=== PATIENT | male | born 1945 | race Hispanic/Latino ===

== ENCOUNTER 2017-12-12 09:37 | Emergency (ER) | payer OTHER ==
[2017-12-12] MEDS ORDERED: OXYMETAZOLINE HCL SPRAY 15 ML BOTTLE ONE (09:56)
[2017-12-12] MEDS ORDERED: SILVER NITRATE APPLICATOR 1 SWAB TP ONE ×2 (10:12→11:12)
== END 2017-12-12 12:12 | disposition home or self-care (01) ==
LOC: EDH 09:37
DX: R04.0 Epistaxis (principal); J45.909 Unspecified asthma, uncomplicated; E11.9 Type 2 diabetes mellitus without complications; E78.5 Hyperlipidemia, unspecified; I10 Essential (primary) hypertension; Z87.891 Personal history of nicotine dependence
CPT/HCPCS: 30901

== ENCOUNTER → 2019-01-16 | Outpatient (CLI) | payer OTHER | END | disposition home or self-care (01) | LOC: RAH 11:11 | PROVIDERS: ATTEND Family Medicine | DX: Z13.6 Encounter for screening for cardiovascular disorders (principal); R07.9 Chest pain, unspecified; I25.10 Atherosclerotic heart disease of native coronary artery without angina pectoris; I25.9 Chronic ischemic heart disease, unspecified | CPT/HCPCS: 75571 ==

== ENCOUNTER → 2019-04-13 | Outpatient (CLI) | payer OTHER | END | disposition home or self-care (01) | LOC: RAH 09:31 | PROVIDERS: ATTEND Internal Medicine Cardiovascular Disease | DX: I25.10 Atherosclerotic heart disease of native coronary artery without angina pectoris (principal) | CPT/HCPCS: 93306; 93356 ==

== ENCOUNTER 2019-05-04 05:38 | Observation (INO) | payer OTHER ==
[2019-05-02 09:43] LABS: BASOPHILS % (AUTO) 0.6 % (0.0-5.0); EOSINOPHILS % (AUTO) 2.3 % (0.0-8.0); HEMATOCRIT 41.6 % (42-54); MEAN CORPUSCULAR HEMOGLOBIN 31.2 pg (27.0-33.0); MEAN CORPUSCULAR HGB CONC 33.9 g/dL (32.0-36.0); MONOCYTES % (AUTO) 5.8 % (3.0-13.0); NEUTROPHILS % (AUTO) 70.9 % (40.0-77.0); PLATELET COUNT (AUTO) 255 K/uL (130-400); RED BLOOD CELL COUNT(AUTO) 4.52 MIL/uL (4.50-6.20); RED CELL DISTRIBUTION WIDTH 12.4 % (11.0-15.5); WHITE BLOOD COUNT (AUTO) 10.8 K/uL (4.8-10.8)
[2019-05-02 09:54] LABS: CREATININE 0.9 mg/dL (0.5-1.5); POTASSIUM 4.1 mmol/L (3.5-5.1)
[2019-05-02 09:58] LABS: APPEARANCE,URINE Clear (CLEAR); BILIRUBIN,URINE Negative (NEGATIVE); COLOR,URINE Yellow (YELLOW); GLUCOSE, URINE (UA) >=1000 mg/dL (NEGATIVE); KETONES,URINE Negative (NEGATIVE); LEUKOCYTE ESTERASE ,URINE Negative (NEGATIVE); NITRATE,URINE Negative (NEGATIVE); OCCULT BLOOD,URINE Negative (NEGATIVE); PH,URINE 5.5 (5.0-8.0); PROTEIN,URINE Negative (NEGATIVE)
[2019-05-02 10:06] LABS: INR 0.99 (0.85-1.15); PARTIAL THROMBOPLASTIN TIME 27.3 SEC (26.3-35.5); PROTHROMBIN TIME 10.4 SEC (9.6-11.6)
[2019-05-02 10:17] LABS: BACTERIA,URINE Rare /HPF (None Seen); RBC,URINE 0-1 /HPF (0-1); SQUAMOUS EPITHELIAL CELL,UR Rare /HPF (0-2); WBC,URINE 0-1 /HPF (0-1)
[2019-05-02 10:42] VITALS: BP 153/77
--- NOTE | 2019-05-03 14:43 | NUR ---
CHEST X RAY CHEST X RAY RESULT REPORTED TO BISI ARRIETA FOR DR. ROB. NO FURTHER ORDERS GIVEN, MAY PROCEED WITH PLANNED PROCEDURE.
[2019-05-04] VITALS (16 sets, daily range): BP systolic 130–177; BP diastolic 66–90
[~2019-05-04] VITALS: Ht 175.3 cm; Wt 88.5 kg
[~2019-05-04 05:38] MED LIST: ACET-2743 PO; ALBU8.5H8 IH; ASPI-555 PO; ATOR10TA69 PO; CHOL100046 PO; EMPA25TA PO; GLIM4TAB36 PO; HYDR12.54 PO; KRIL1CAP19 PO; LOSA100T58 PO; OMEP20TA25 PO; SITA100T12 PO; VITA0.4T9 PO
[2019-05-04] MEDS ORDERED: SODIUM CHLORIDE 0.9% 1000ML 1,000 ML IV ONE (06:01)
[2019-05-04] MEDS ORDERED: LIDOCAINE HCL 2% 20ML ONE (09:17)
[2019-05-04] MEDS ORDERED: NITROGLYCERIN 2 MG/VIAL VIAL IV ONE (09:17)
[2019-05-04] MEDS ORDERED: IOHEXOL 350 MG/ML 100ML INFUS..BTL IV ONE (09:17)
[2019-05-04] MEDS ORDERED: MIDAZOLAM HCL 1 MG/ML 2ML VIAL ONE ×2 (09:17→10:37)
[2019-05-04] MEDS ORDERED: HEPARIN SODIUM 1000UNIT/ML 10ML VIAL ONE (09:17)
[2019-05-04] MEDS ORDERED: BIVALIRUDIN 250 MG/VIAL IV ONE (09:20)
[2019-05-04] MEDS ORDERED: FENTANYL CITRATE PF 50 MCG/1 ML 2ML VIAL ONE (09:23)
--- NOTE | 2019-05-04 09:42 | NUR ---
PT TSF TO THREAD WINDER BY BED WITH ROSE DAVENPORT
[2019-05-04] MEDS ORDERED: NICARDIPINE HCL 25 MG/10 ML ML IV ONE (09:51)
[2019-05-04] MEDS ORDERED: TICAGRELOR 90 MG TABLET ONE (11:04)
[2019-05-04] MEDS ORDERED: SODIUM CHLORIDE 0.9% 1000ML 1,000 ML IV SCH (11:12)
[2019-05-04] MEDS ORDERED: DEXTROSE 50%-WATER 50 ML DISP.SYRIN IV PRN (11:15)
[2019-05-04] MEDS ORDERED: NITROGLYCERIN 0.4 MG SL TAB SL PRN (11:15)
[2019-05-04] MEDS ORDERED: METOPROLOL TARTRATE 1 MG/ML 5ML VIAL IV PRN (11:15)
[2019-05-04] MEDS ORDERED: GLUCAGON 1MG KIT 1 MG ML IM PRN (11:15)
--- NOTE | 2019-05-04 11:45 | NUR ---
PT RECIEVED BACK FROM [facility] WITH 7 FR. TO RT. GROIN AND TR BAND TO THE RT WRIST WITH 15 ML. BOTH SITE ARE DRY AND INTACT WITH RADIAL PULSES PRESENT AND DP BILATERALLY PRESENT.
--- NOTE | 2019-05-04 12:00 | NUR ---
REMOVED 2 ML FROM RT WRIST TRBAND. DRESSING DRY AND INTACT
--- NOTE | 2019-05-04 12:15 | NUR ---
REMOVED 2ML FROM TR BAND FROM RT WRIST, DRESSING DRY AND INTACT
--- NOTE | 2019-05-04 12:30 | NUR ---
REMOVED 2 ML FROM TR BAND FROM RT. WRIST DRESSING DRY AND INTACT WITH RADIAL PULSES
--- NOTE | 2019-05-04 12:45 | NUR ---
REMOVED 2 ML FROM TR BAND FROM RT. WRIST DRESSING DRY AND INTACT WITH RADIAL PULSE INTACT
--- NOTE | 2019-05-04 13:00 | NUR ---
REMOVED 2 ML FROM TR BAND FROM RT. WRIST DRESSING DRY AND INTACT WITH RADIAL PULSES INTACT
--- NOTE | 2019-05-04 13:15 | NUR ---
REMOVED 2 ML FROM TR BAND DRESSING DRY AND INTACT RADIAL PULSES INTACT
--- NOTE | 2019-05-04 13:45 | NUR ---
REMOVED 2 ML FROM TR BAND FROM RT. WRIST DRESSING DRY AND INTACT, RADIAL PULSES INTACT
--- NOTE | 2019-05-04 14:00 | NUR ---
2 ML REMOVED FROM RT RADIAL TR BAND. PT TOLERATED PROCEDURE WELL, NO BLEEDING NO HEMATOMA NO PAIN, BANDAGE APPLIED. RADIAL PULSES INTACT.
[2019-05-04] MEDS ORDERED: ATROPINE SULFATE 0.1 MG/ML 10 ML SYG IVP ONE (14:16)
--- NOTE | 2019-05-04 14:32 | NUR ---
PT. SHEATH PULLED FROM RT. GROIN PRESSURE WILL BE HELD FOR 20MIN.
--- NOTE | 2019-05-04 14:52 | NUR ---
PT. TOLERATED PROCEDURE WILL AND REACH HEMOSTASIS AFTER 20 MIN OF PRESSURE, D-STAT APPLIED. DRESSING DRY AND INTACT WITH DP PRESENT. ALSO REPORT GIVEN TO KEESHA GERARD RN AT BEDSIDE.
[2019-05-04] MEDS: INSULIN HUMULIN R 100 UNIT/ML 3ML SQ SCH ×2 (16:30→21:00)
[2019-05-04] MEDS: TICAGRELOR 90 MG TABLET PO SCH (21:22)
[2019-05-05 03:21] VITALS: BP 139/76
[2019-05-05 05:23] LABS: HEMATOCRIT 38.8 % (42-54); MEAN CORPUSCULAR HEMOGLOBIN 31.1 pg (27.0-33.0); MEAN CORPUSCULAR VOLUME 91.5 fL (79-99); PLATELET COUNT (AUTO) 245 K/uL (130-400); RED BLOOD CELL COUNT(AUTO) 4.24 MIL/uL (4.50-6.20); RED CELL DISTRIBUTION WIDTH 12.5 % (11.0-15.5); WHITE BLOOD COUNT (AUTO) 11.2 K/uL (4.8-10.8)
[2019-05-05 06:08] LABS: CREATININE 0.9 mg/dL (0.5-1.5); POTASSIUM 4.1 mmol/L (3.5-5.1)
[2019-05-05] MEDS: INSULIN HUMULIN R 100 UNIT/ML 3ML SQ SCH ×2 (06:23→11:24)
[2019-05-05] MEDS ORDERED: TICA90TA PO (07:42)
[2019-05-05 07:53] VITALS: BP 137/73
[2019-05-05] MEDS ORDERED: ASPIRIN 81MG TAB.CHEW PO SCH (09:00)
[2019-05-05] MEDS ORDERED: ACETAMINOPHEN EXTRA STRENGTH 500 MG TABLET PO PRN (09:30)
[2019-05-05] MEDS: TICAGRELOR 90 MG TABLET PO SCH (10:00)
[2019-05-05 11:34] VITALS: BP 152/75
[2019-05-05] MEDS ORDERED: VITAMIN B COMPLEX 1 CAPSULE PO SCH (12:00)
--- NOTE | 2019-05-05 12:55 | NUR ---
Discharge IV and telepack were removed. Patient was wheeled down to private vehicle being driven by son.
--- NOTE | 2019-05-05 12:55 | NUR ---
Discharge Patient discharge instructions were given including new medications/special instructions/and follow up appointments.
--- NOTE | 2019-05-05 13:09 | NUR ---
[id number] patient signed IM Letter, I faxed IM Letter to [phone] and placed in chart under consent tab
[2019-05-05] MEDS ORDERED: LOSARTAN 100 MG TABLET PO SCH (21:00)
[2019-05-05] MEDS ORDERED: CHOLECALCIFEROL PO SCH (21:00)
[2019-05-05] MEDS ORDERED: KRILL OIL 500 MG PO SCH (21:00)
[2019-05-06] MEDS ORDERED: LINAGLIPTIN 5 MG TABLET PO SCH (09:00)
[2019-05-06] MEDS ORDERED: GLIMEPIRIDE 2 MG TABLET PO SCH (09:00)
[2019-05-06] MEDS ORDERED: ATORVASTATIN CALCIUM 10 MG TABLET PO SCH (09:00)
[2019-05-06] MEDS ORDERED: NON-FORMULARY MEDICATION 1 EACH (Omeprazole 20 MG) PO SCH (09:00)
[2019-05-06] MEDS ORDERED: PANTOPRAZOLE SODIUM 40 MG TABLET.DR PO SCH (09:00)
[2019-05-06] MEDS ORDERED: EMPAGLIFLOZIN 25 MG PO SCH (09:00)
[2019-05-06] MEDS ORDERED: HYDROCHLOROTHIAZIDE 25 MG TABLET PO SCH (09:00)
== END 2019-05-05 13:31 | disposition home or self-care (01) ==
LOC: DAH 05:38 → DAHIP 05:39 → DAH 05:39 → 2DH 16:57
PROVIDERS: ADMIT Internal Medicine Cardiovascular Disease; ATTEND Internal Medicine Cardiovascular Disease
DX: I25.10 Atherosclerotic heart disease of native coronary artery without angina pectoris (principal); I10 Essential (primary) hypertension; E78.5 Hyperlipidemia, unspecified; J45.909 Unspecified asthma, uncomplicated; E11.65 Type 2 diabetes mellitus with hyperglycemia; Z87.891 Personal history of nicotine dependence
CPT/HCPCS: 36415 ×3; 71045; 80048 ×2; 80061; 81001; 82948 ×7; 83880; 85025; 85027; 85610; 85730; 93005; 93458; C1725; C1769 ×4; C1874; C1887; C1894 ×4; C9600; G0378 ×20; J0583; J1644 ×2; J2250 ×2; J3010; J3490 ×3; J7030; Q9965 ×2; Q9967; 99156; 99157; J0461

== ENCOUNTER 2020-08-13 01:38 | Emergency (ER) | payer OTHER ==
[~2020-08-13 01:38] MED LIST changes: -ASPI-555 PO; +ASPI-556 PO; +TICA90TA PO
[2020-08-13] MEDS ORDERED: OXYMETAZOLINE HCL SPRAY 15 ML BOTTLE ONE (02:16)
== END 2020-08-13 02:31 | disposition home or self-care (01) ==
LOC: EDH 01:38
DX: R04.0 Epistaxis (principal); I10 Essential (primary) hypertension; E78.5 Hyperlipidemia, unspecified; E11.9 Type 2 diabetes mellitus without complications; J45.909 Unspecified asthma, uncomplicated; Z87.891 Personal history of nicotine dependence
CPT/HCPCS: 99282

== ENCOUNTER → 2021-07-31 | Outpatient (CLI) | payer OTHER ==
[~2021-07-31] MED LIST changes: +OMEP20TA20 PO; -OMEP20TA25 PO
== END | disposition home or self-care (01) ==
LOC: SHCH 12:37
PROVIDERS: ATTEND Internal Medicine Cardiovascular Disease
DX: I65.23 Occlusion and stenosis of bilateral carotid arteries (principal); I11.9 Hypertensive heart disease without heart failure; I25.10 Atherosclerotic heart disease of native coronary artery without angina pectoris; E11.9 Type 2 diabetes mellitus without complications
CPT/HCPCS: 93306; 93880

== ENCOUNTER → 2023-10-07 | Outpatient (CLI) | payer OTHER ==
[~2023-10-07] MED LIST changes: -LOSA100T58 PO; +LOSA100T59 PO
== END | disposition home or self-care (01) ==
LOC: SHCH 12:45
PROVIDERS: ATTEND Internal Medicine Cardiovascular Disease
DX: I70.201 Unspecified atherosclerosis of native arteries of extremities, right leg (principal); I87.1 Compression of vein; I87.2 Venous insufficiency (chronic) (peripheral); I51.89 Other ill-defined heart diseases; R07.9 Chest pain, unspecified; R06.00 Dyspnea, unspecified; I77.9 Disorder of arteries and arterioles, unspecified; I65.23 Occlusion and stenosis of bilateral carotid arteries
CPT/HCPCS: 93306; 93880; 93925; 93970